=== PATIENT | male | born 1980 | race Hispanic/Latino ===

== ENCOUNTER 2018-10-16 08:35 | Emergency (ER) | payer OTHER ==
[2018-10-16] MEDS ORDERED: CEPHALEXIN500 M1 PO (10:05)
[2018-10-16 10:25] VITALS: BP 159/85
== END 2018-10-16 10:38 | disposition home or self-care (01) | DRG 605 ==
LOC: ED 08:35
PROC: 0HQGXZZ Repair Left Hand Skin, External Approach (ICD-10-PCS; principal; 2018-10-16)
DX: S61.311A Laceration without foreign body of left index finger with damage to nail, initial encounter (principal); W22.8XXA Striking against or struck by other objects, initial encounter